=== PATIENT | male | born 1995 | race Caucasian/White ===

== ENCOUNTER 2016-08-21 00:38 | Emergency (ER) | payer OTHER ==
--- NOTE | 2016-08-21 02:41 | ED ---
Laceration/Wound HPI - HPI Summary HPI Summary: 21M presents with right hand laceration today while doing dishes he cut it on a butter knife in the water. He is right handed. His tetanus is up to date. He denies any numbness or tingling. He has full ROM of his fingers. There are two lacerations and the one continues to bleed. - History of Current Complaint Stated Complaint: RT HAND LAC Time Seen by Provider: 08/21/16 00:53 Pain Intensity: 0 PMH/Surg Hx/FS Hx/Imm Hx Endocrine/Hematology History: Denies: Hx Anticoagulant Therapy Cardiovascular History: Denies: Hx Hypertension - Immunization History Date of Tetanus Vaccine: utd Date of Influenza Vaccine: none Infectious Disease History: No Infectious Disease History: Denies: Traveled Outside the [place] in Last 30 Days - Family History Known Family History: Positive: Hypertension - Social History Alcohol Use: None Substance Use Type: Reports: None Smoking Status (MU): Never Smoked Tobacco Review of Systems Negative: Fever Negative: Chest Pain Negative: Shortness Of Breath Positive: Other - laceration right hand All Other Systems Reviewed And Are Negative: Yes Physical Exam Triage Information Reviewed: Yes Vital Signs On Initial Exam: Initial Vitals Temp Pulse Resp BP Pulse Ox 97.9 F 86 19 138/79 100 08/21/16 00:46 08/21/16 00:46 08/21/16 00:46 08/21/16 00:46 08/21/16 00:46 Vital Signs Reviewed: Yes Appearance: Positive: Well-Appearing Skin: Positive: Warm, Dry, Other - 4cm laceration right dorsum across MCP joint , 1 cm laceration of right thumb dorsum Head/Face: Positive: Normal Head/Face Inspection Eyes: Positive: Normal, Conjunctiva Clear Respiratory/Lung Sounds: Positive: Clear to Auscultation, Breath Sounds Present Cardiovascular: Positive: Normal, RRR Musculoskeletal: Positive: Strength/ROM Intact - right hand, Other - good pulses , capillary refill < 2 secs - [place] Coma Scale Coma Scale Total: 15 Procedures - Laceration/Wound Repair 1 Location: Other - dorsum right hand Description: Linear Anesthesia: Local, 1.0% Length, Depth and Shape: 4cm by 1/2 cm wide Betadine Prep?: Yes Irrigated w/ Saline (ccs): 200 Closure: Single Layer Suture Type: Prolene - 4-0 Number of Sutures: 10 Layer Closure?: No 2 Location: Other - right thumb Description: Linear Anesthesia: Local, 1.0% Length, Depth and Shape: 1cm Betadine Prep?: Yes Irrigated w/ Saline (ccs): 200 Closure: Single Layer Suture Type: Prolene - 4-0 Number of Sutures: 2 Diagnostics - Vital Signs Vital Signs Temp Pulse Resp BP Pulse Ox 08/21/16 00:46 97.9 F 86 19 138/79 100 - Laboratory Lab Statement: Any lab studies that have been ordered have been reviewed, and results considered in the medical decision making process. Laceration Repair Course/Dx - Course Course Of Treatment: 21M presents with laceration to right hand today s/p cutting on a knife. tetanus up to date. ful ROM of hand. in one laceration placed 10 sutures and 2 in other. wrapped in DAVID. patient understands and agrees with plan - Differential Dx Differental Diagnoses: Abrasion, Avulsion, Laceration - Clinical Impression Provider Diagnoses: Laceration of hand Discharge - Discharge Plan Condition: Good Disposition: HOME Patient Education Materials: Care For Your Stitches (ED) Referrals: Waqar Lim MD [Primary Care Provider] - Additional Instructions: Keep david on area for next 5 days Change bandages after 48 hours Keep area clean and dry for 48 hours Take Tylenol or ibuprofen for pain every 6 hours Return to ED, UC, or primary for suture removal in 10-14 days Return to ED if develop signs of infection such as fever, spreading redness, or pus formation Images - Images Hands: 1 - 4cm 2 - 1cm
[2016-08-21 02:54] VITALS: BP 131/80
== END 2016-08-21 02:54 | disposition home or self-care (01) ==
LOC: ED 00:38
DX: S61.411A Laceration without foreign body of right hand, initial encounter (principal); S61.011A Laceration without foreign body of right thumb without damage to nail, initial encounter; W26.0XXA Contact with knife, initial encounter; Y93.G1 Activity, food preparation and clean up; Y92.9 Unspecified place or not applicable
CPT/HCPCS: 12002; 99282